=== PATIENT | female | born 1935 | race Caucasian/White ===

== ENCOUNTER 2018-08-24 06:47 | Day surgery (SDC) | payer MEDICARE ==
[~2018-08-24] VITALS: Ht 160 cm; Wt 75.6 kg
[2018-08-24 08:43] VITALS: BP 101/64; PULSE 60; TEMP 97.7
--- NOTE | 2018-08-24 09:03 | NUR ---
TO [facility]OLORES FROM RADIOLOGY CALL LIGHT IN REACH GRANDDAUGHTER AT BEDSIDE.
[2018-08-24] MEDS ORDERED: BENADRYL ALLERG25 M2 PO (09:12)
[2018-08-24] MEDS ORDERED: CATAPRES 0.1MG0.1 MG PO (09:13)
[2018-08-24] MEDS ORDERED: HCTZ 25MG TAB25 MG PO (09:13)
[2018-08-24] MEDS ORDERED: LOTENSIN40 MG PO (09:14)
[2018-08-24] MEDS ORDERED: ZOCOR 10MG10 MG (09:15)
[2018-08-24] MEDS ORDERED: NORVASC 5MG5 MG/TAB PO (09:16)
[2018-08-24] MEDS ORDERED: XANAX 0.5MG0.5 MG PO (09:16)
[2018-08-24] MEDS ORDERED: COD LIVER OIL1 CAP PO (09:17)
[2018-08-24] MEDS ORDERED: D3-5050000 IU PO (09:19)
[2018-08-24] MEDS ORDERED: BALANCE B-501 TA1 PO (09:20)
[2018-08-24] MEDS ORDERED: NATURAL POTASS595 MG PO (09:21)
[2018-08-24] MEDS ORDERED: VITAMIN C500 MG PO (09:23)
[2018-08-24] MEDS ORDERED: ALOE VERA CONCE1 CAP PO (09:23)
[2018-08-24] MEDS ORDERED: HAWTHORN BERRIES PO (09:24)
[2018-08-24] MEDS ORDERED: CALCIUM-MAGNES1 EAC1 PO (09:25)
[2018-08-24] MEDS ORDERED: GLUCOSAMINE MSM1 TAB PO (09:29)
[2018-08-24] MEDS ORDERED: MULTIVITAMIN SEN PO ×2 (09:33→09:34)
[2018-08-24] MEDS ORDERED: ASPIRIN E.C. 8181 MG PO (09:34)
[2018-08-24] MEDS ORDERED: B-121000 MCG PO (09:36)
[2018-08-24] MEDS ORDERED: SYNTHROID0.05 MG/TA PO (09:37)
[2018-08-24] MEDS ORDERED: SELENIUM200 MC5 PO (09:38)
[2018-08-24] MEDS ORDERED: PAPAYA ENZYME1 TA1 PO (09:38)
[2018-08-24] MEDS ORDERED: MELATONIN5 M1 PO (09:40)
[2018-08-24] MEDS ORDERED: COLACE 100100 MG/CAP PO (15:05)
[2018-08-24] MEDS ORDERED: NORCO 325 MG-51 TAB PO (15:06)
[2018-08-24 15:15] VITALS: BP 144/68; PULSE 56; TEMP 97.3
--- NOTE | 2018-08-24 15:15 | NUR ---
TO RM 6 PER CART FROM PACU. ALERT ORIENTED X3, TALKING TO STAFF. UPON RETURNING TO UP TO BEDSIDE COMMODE. VOIDED AND ASSISTED BACK TO BED.
[2018-08-24 15:30] VITALS: BP 165/75; PULSE 58
--- NOTE | 2018-08-24 15:30 | NUR ---
RECEIVED COFFEE AND A MUFFIN. C/O PAIN 10/29.
[2018-08-24 15:43] VITALS: TEMP 97.3
--- NOTE | 2018-08-24 15:43 | NUR ---
RECEIVED NORCO 5MG 1 TAB PER C/O PAIN 10/29.
[2018-08-24 15:45] VITALS: BP 166/71; PULSE 62
--- NOTE | 2018-08-24 15:45 | NUR ---
ATE 1/2 MUFFIN, BUT C/O IT BEING TOO DRY. RECEIVED CUP OF ICE CREAM.
[2018-08-24 16:00] VITALS: BP 158/77; PULSE 60
--- NOTE | 2018-08-24 16:00 | NUR ---
BACK UP TO BEDSIDE COMMODE WITH ASSIST.
--- NOTE | 2018-08-24 16:00 | NUR ---
ATE 100% ICE CREAM AND COFFEE.
--- NOTE | 2018-08-24 16:30 | NUR ---
ASSISTED PATIENT DRESSED. RECEIVED DISCHARGE INSTRUCTIONS AND VERBALIZED UNDERSTANDING. DISCONTINUED IV AND INT- CATHETER INTACT COVERED WITH COTTON BALL AND COBAN
--- NOTE | 2018-08-24 17:00 | NUR ---
DISCHARGED PER WC BY NURSING STAFF TO PRIVATE CAR IN CARE OF GRANDDAUGHTER.
== END 2018-08-24 17:03 | disposition home or self-care (01) ==
LOC: SDCO 06:47
DX: C50.411 Malignant neoplasm of upper-outer quadrant of right female breast (principal); Z17.0 Estrogen receptor positive status [ER+]; Z79.899 Other long term (current) drug therapy; Z79.82 Long term (current) use of aspirin; E03.9 Hypothyroidism, unspecified; Z90.710 Acquired absence of both cervix and uterus; Z96.641 Presence of right artificial hip joint; Z90.49 Acquired absence of other specified parts of digestive tract; Z80.3 Family history of malignant neoplasm of breast; I10 Essential (primary) hypertension; Z87.891 Personal history of nicotine dependence; K21.0 Gastro-esophageal reflux disease with esophagitis; K44.9 Diaphragmatic hernia without obstruction or gangrene; J32.9 Chronic sinusitis, unspecified; F41.9 Anxiety disorder, unspecified
CPT/HCPCS: A9541; J0690; J1100; J2250; J2270; J2405; J2704; J2795; J3010; J7120